=== PATIENT | female | born 1970 | race Two or more races ===

== ENCOUNTER 2017-11-28 11:15 | Outpatient (CLI) | payer OTHER ==
[~2017-11-28 11:15] MED LIST: SYNTHROID150 MCG PO
== END 2017-11-28 12:09 | disposition home or self-care (01) ==
LOC: TOM 11:15
DX: R91.1 Solitary pulmonary nodule (principal); Z72.0 Tobacco use; K21.9 Gastro-esophageal reflux disease without esophagitis

== ENCOUNTER 2018-04-21 22:54 | Emergency (ER) | payer OTHER ==
[~2018-04-21] VITALS: Ht 172.7 cm; Wt 108.9 kg
[2018-04-22] MEDS ORDERED: SKELAXIN800 MG PO (02:20)
[2018-04-22] MEDS ORDERED: KETO10TA2 PO (02:20)
== END 2018-04-22 02:38 | disposition home or self-care (01) ==
LOC: ER 22:54
DX: M25.561 Pain in right knee (principal); M54.31 Sciatica, right side

== ENCOUNTER 2018-07-25 11:40 | Outpatient (CLI) | payer OTHER ==
[~2018-07-25 11:40] MED LIST changes: +KETO10TA2 PO; +SKELAXIN800 MG PO
== END 2018-07-25 11:49 | disposition home or self-care (01) ==
LOC: RAD 11:40
DX: R07.89 Other chest pain (principal)

== ENCOUNTER 2020-06-03 09:42 | Outpatient (CLI) | payer OTHER | END 2020-06-03 09:54 | disposition home or self-care (01) | LOC: MAMO-SONO 09:42 | PROVIDERS: ATTEND Obstetrics & Gynecology | DX: N60.02 Solitary cyst of left breast (principal); N60.01 Solitary cyst of right breast; N64.59 Other signs and symptoms in breast ==